=== PATIENT | male | born 1980 | race Caucasian/White ===

== ENCOUNTER 2017-01-06 18:22 | Emergency (ER) | payer BC ==
[~2017-01-06] VITALS: Ht 167.6 cm; Wt 79.5 kg
[~2017-01-06 18:22] MED LIST: MOTRIN800 MG PO
[2017-01-06 18:47] VITALS: BP 126/53; TEMP 98
[2017-01-06] MEDS ORDERED: NORCO 325 MG-51 TAB PO (20:17)
[2017-01-06 20:54] VITALS: PULSE 71
== END 2017-01-06 20:54 | disposition home or self-care (01) ==
LOC: COL.ER 18:22
DX: S62.314A Displaced fracture of base of fourth metacarpal bone, right hand, initial encounter for closed fracture (principal); S62.316A Displaced fracture of base of fifth metacarpal bone, right hand, initial encounter for closed fracture; W22.09XA Striking against other stationary object, initial encounter; Y92.009 Unspecified place in unspecified non-institutional (private) residence as the place of occurrence of the external cause

== ENCOUNTER → 2017-01-08 | Outpatient (CLI) | payer BC ==
[~2017-01-08] MED LIST changes: +NORCO 325 MG-51 TAB PO
== END ==
LOC: ZCOL.LAB 11:55
DX: Z01.812 Encounter for preprocedural laboratory examination (principal)